=== PATIENT | male | born 1955 | race Caucasian/White ===

== ENCOUNTER 2016-10-16 12:02 | Emergency (ER) | payer OTHER ==
[2016-10-16 12:34] LABS: ABSOLUTE NEUTROPHIL COUNT 3.9 K/mm3 (1.8-7.7); BASO % 0.6 % (0.2-1.0); EOS # 0.1 (0.0-0.5); EOS % 1.4 % (0.9-2.9); HEMATOCRIT 48.3 % (32.0-52.0); HEMOGLOBIN 16.1 gm/l (14.0-18.0); IMM NEUT% 0.3 % (0-1); LYMPH # 1.9 (1.0-4.8); LYMPH % 30.1 % (15-45); MEAN CELL VOLUME 93.2 fl (80.0-94.0); MEAN CORPUSCULAR HEMOGLOBIN 31.1 pg (27.0-31.0); MEAN CORPUSCULAR HGB CONC 33.3 g/dl (33.0-37.0); MEAN PLATELET VOLUME 9.9 fl (7.4-10.4); MONO # 0.4 (0.0-0.8); MONO % 6.9 % (4-12); NEUT % 60.7 % (43-75); PLATELET COUNT 222 K/mm3 (130-400); RED CELL DISTRIBUTION WIDTH 12.9 % (11.5-14.5)
--- NOTE | 2016-10-16 12:45 | RAD ---
10/16/2016 12:40 PM CHEST - 2 VIEWS History: Worsening shortness of breath with weakness. Comparison: Plain films earlier on the same day Findings: Two views of the chest are obtained. The lungs are clear with out effusion or pneumothorax. The cardiomediastinal silhouette is unremarkable.. The osseous structures are intact.. IMPRESSION: No acute intrathoracic process.
[2016-10-16 12:46] LABS: ALB/GLOB RATIO 1.3 (>1.0); ALBUMIN 4.1 gm/dL (3.5-5.7); CALCIUM 9.3 mg/dL (8.6-10.3)
[2016-10-16] MEDS ORDERED: ALBUTEROL/IPRATROPIUM 2.5/0.5 MG 3 ML/EACH DOSE ONE (12:48)
[2016-10-16] MEDS ORDERED: METHYLPRED SOD SUCCINATE 125 MG VIAL ONE (12:48)
[2016-10-16 12:51] LABS: TROPONIN I < 0.01 ng/ml (0.0-0.06)
[2016-10-16 12:54] LABS: CKMB ISOENZYME 2.3 ng/ml (0.6-6.3)
== END 2016-10-16 13:53 | disposition home or self-care (01) ==
LOC: ED 12:02
DX: J44.1 Chronic obstructive pulmonary disease with (acute) exacerbation (principal); R53.83 Other fatigue; R53.1 Weakness; F17.220 Nicotine dependence, chewing tobacco, uncomplicated
CPT/HCPCS: 85025; 82553; 80053; 84443; 84484; 71020; 94640; 99284 ×2; 96374; J2930